=== PATIENT | female | born 1975 | race Caucasian/White ===

== ENCOUNTER 2021-03-19 08:26 | Outpatient (CLI) | payer OTHER | END 2021-03-19 08:33 | disposition home or self-care (01) | LOC: LAB 08:26 | PROVIDERS: ATTEND Emergency Medicine Pediatric Emergency Medicine | DX: Z03.818 Encounter for observation for suspected exposure to other biological agents ruled out (principal) ==

== ENCOUNTER 2021-03-19 09:00 | Outpatient (CLI) | payer OTHER | END 2021-03-19 09:30 | disposition home or self-care (01) | LOC: PPH VACUNA 09:00 | PROVIDERS: ATTEND Emergency Medicine Pediatric Emergency Medicine | DX: Z23 Encounter for immunization (principal) ==

== ENCOUNTER 2021-03-26 08:00 | Outpatient (CLI) | payer OTHER | END 2021-03-26 08:10 | disposition home or self-care (01) | LOC: LAB 08:00 | DX: Z03.818 Encounter for observation for suspected exposure to other biological agents ruled out (principal) ==